=== PATIENT | female | born 1970 | race Caucasian/White ===

== ENCOUNTER 2020-05-13 12:59 | Observation (INO) | payer MEDICAID ==
[~2020-05-13] VITALS: Ht 157.5 cm; Wt 101.6 kg
[2020-05-13 13:06] VITALS: BP 146/108
--- NOTE | 2020-05-13 13:10 | NUR ---
49 y/o female referred from urgent care for possible I & D to abscess on upper back. Pt states she has had abscess for 1 year but has progressively gotten worse. 7/10 pain. Redness noted around abscess. Warm and tender to the touch. Skin warm, dry, and intact. Awake and alert. Positioned for comfort, HOB elevated, x 1 side rail raised, bed locked and in lowest position. medhx: diverticulitis
--- NOTE | 2020-05-13 13:15 | NUR ---
Dr Mclaughlin at bedside examining pt
[2020-05-13] MEDS ORDERED: LIDOCAINE/EPI 1% 1:100000 20 ML VIAL INJ ONE (13:20)
[2020-05-13] MEDS ORDERED: NACL 0.9% 1,000 ML IV ONE (13:50)
[2020-05-13] MEDS ORDERED: KETOROLAC 30 MG/ML VIAL IVP ONE (13:50)
--- NOTE | 2020-05-13 14:18 | NUR ---
20G IV placed to right ac, blood drawn at this time and given to lab.
[2020-05-13 14:33] LABS: BASOPHILS # (AUTO) 0.1 K/uL (0.00-0.22); BASOPHILS % (AUTO) 0.5 % (0.0-2.0); EOSINOPHILS # (AUTO) 0.1 K/uL (0-0.4); HEMATOCRIT 39.3 % (36-48); HEMOGLOBIN 12.9 g/dL (12.0-16.0); LYMPHOCYTES # (AUTO) 1.1 K/uL (2.5-16.5); LYMPHOCYTES % (AUTO) 11.6 % (20.5-51.1); MEAN CORPUSCULAR HEMOGLOBIN 27 pg (27-31); MEAN CORPUSCULAR HGB CONC 33 g/dL (33-37); MEAN CORPUSCULAR VOLUME 83.3 fL (80-94); MONOCYTES # (AUTO) 0.5 K/uL (0.8-1.0); MONOCYTES % (AUTO) 5.5 % (1.7-9.3); NEUTROPHILS # (AUTO) 7.9 K/uL (1.8-7.7); NEUTROPHILS % (AUTO) 81.4 % (42.2-75.2); PLATELET COUNT (AUTO) 356 K/uL (140-450); RED BLOOD CELL COUNT(AUTO) 4.72 MIL/uL (4.20-5.40); RED CELL DISTRIBUTION WIDTH 15.8 % (11.6-13.7); WHITE BLOOD COUNT (AUTO) 9.7 K/uL (4.8-10.8)
[2020-05-13 14:38] LABS: ANION GAP 16.2 (8-16); CARBON DIOXIDE 23.6 mmol/L (21-32); CREATININE 0.8 mg/dL (0.6-1.3); POTASSIUM 3.8 mmol/L (3.5-5.1)
[2020-05-13] MEDS ORDERED: VANCOMYCIN 1,000 MG in DEXTROSE 5% 250 ML IV ONE (15:10)
[2020-05-13] MEDS ORDERED: MORPHINE SULFATE 4 MG/ML SYR IVP ONE (15:10)
[2020-05-13] MEDS ORDERED: ONDANSETRON 4 MG/2 ML VIAL IVP ONE (15:10)
[2020-05-13] MEDS ORDERED: VANCOMYCIN 1,000 MG VIAL ONE (15:14)
[2020-05-13] MEDS: NACL 0.45% 1,000 ML IV SCH (15:24)
[2020-05-13] MEDS ORDERED: ACETAMINOPHEN 325 MG TAB PO PRN (15:25)
[2020-05-13] MEDS ORDERED: HYDROcodone/APAP 5/325 MG 1 TAB TAB PO PRN (15:25)
--- NOTE | 2020-05-13 15:48 | NUR ---
Pt awake and alert, rr even and unlabored. All needs met at this time. Will continue to monitor
[2020-05-13 16:30] VITALS: BP 147/57
--- NOTE | 2020-05-13 16:30 | NUR ---
PT CAME TO UNIT ON A WHEEL CHAIR. PT IS AWAKE RESPONSIVE COOPERATIVE. NOTED WITH ABSCESS 7X7. PAINFUL TO TOUCH. ABSCESS INTACT. NOTED WITH A COLOSTOMY BAG. PT IS AMBULATORY. ID BAND IN PLACE. NO DISTRESS NOTED. COMPLAINS OF PAIN TO ABSCESS. VITAL SIGNS NORMAL O2 SATS AT 95%. BED IN LOW POSITION. CALL LIGHT IN REACH. WILL CONTINUE TO MONITOR.
--- NOTE | 2020-05-13 16:32 | NUR ---
Patient will be admitted to care of Dr Maldonado. Admited to med surg. Will go to room 104B. Belongings list completed. Report to WILLIS Dueñas.
[2020-05-13] MEDS: AMPICILLIN/SULBACTAM 3 GM in NACL 0.9% 100 ML IV SCH (17:03)
--- NOTE | 2020-05-13 18:14 | NUR ---
PT AMBULATED TO RESTROOM . PT CAME BACK TO BED AND EATING DINNER. NO DISTRESS NOTED. PT IS RESPONSIVE AND COOPERATIVE. WILL CONTINUE TO MONITOR. CALL LIGHT IN REACH.
--- NOTE | 2020-05-13 19:19 | NUR ---
SHIFT R EPORT GIVEN TO DATA INTEGRATION ANALYST NURSE. PT IS STABLE.
--- NOTE | 2020-05-13 19:20 | NUR ---
RECD. RESTING IN BED, AWAKE, A/OX4. AMBULATORY TO THE BAR. IV OF 1/2 NS AT 50 ML/HR INFUSING, RIGHT AC G20. ABSCESS AT THE BACK APPEARS LIKE A LUMP, TENDER TO TOUCH. ON IV ANTIBIOTICS. PLAN OF CARE FOR THE SHIFT DISCUSSED. VERBALIZED UNDERSTANDING. DENIES PAIN 0/10.
--- NOTE | 2020-05-13 22:00 | NUR ---
PLAN OF CARE DISCUSSED WITH SABRINA MANRIQUEZ LVN.
[2020-05-14] VITALS: BP 108/42
--- NOTE | 2020-05-14 | NUR ---
SLEEPING COMFORTABLY IN BED.
[2020-05-14] MEDS ORDERED: ONDANSETRON 4 MG/2 ML VIAL IVP PRN (00:15)
[2020-05-14] MEDS: AMPICILLIN/SULBACTAM 3 GM in NACL 0.9% 100 ML IV SCH ×3 (00:49→12:00)
[2020-05-14] MEDS: HYDROcodone/APAP 10/325 MG 1 TAB TAB PO PRN ×4 (01:58→17:50)
[2020-05-14 06:26] LABS: BASOPHILS % (AUTO) 0.6 % (0.0-2.0); EOSINOPHILS # (AUTO) 0.2 K/uL (0-0.4); EOSINOPHILS % (AUTO) 2.8 % (0.0-4.0); HEMATOCRIT 36.6 % (36-48); LYMPHOCYTES # (AUTO) 1.5 K/uL (2.5-16.5); LYMPHOCYTES % (AUTO) 18.7 % (20.5-51.1); MEAN CORPUSCULAR HEMOGLOBIN 28 pg (27-31); MEAN CORPUSCULAR HGB CONC 33 g/dL (33-37); MEAN CORPUSCULAR VOLUME 84.4 fL (80-94); MONOCYTES # (AUTO) 0.7 K/uL (0.8-1.0); MONOCYTES % (AUTO) 8.5 % (1.7-9.3); NEUTROPHILS # (AUTO) 5.5 K/uL (1.8-7.7); NEUTROPHILS % (AUTO) 69.4 % (42.2-75.2); PLATELET COUNT (AUTO) 300 K/uL (140-450); RED BLOOD CELL COUNT(AUTO) 4.34 MIL/uL (4.20-5.40); RED CELL DISTRIBUTION WIDTH 16.3 % (11.6-13.7)
--- NOTE | 2020-05-14 07:00 | NUR ---
COMPLAINT OF BACK PAIN ATTENDED PROMPTLY. MEDICATED ORDERED. CONDITION REMAIN STABLE. WILL ENDORSE TO AM SHIFT NURSE FOR CONTINUITY OF CARE.
--- NOTE | 2020-05-14 07:30 | NUR ---
RECEIVED REPORT FROM [facility] NURSE, ASSUMED CARE. PT RESTING COMFORTABLY WITH NO S/S OF PAIN AND/OR DISTRESS AT THIS TIME. PERSONAL BELONGINGS, BEDSIDE TABLE, CALL LIGHT WITHIN REACH. WILL CONTINUE TO MONITOR.
[2020-05-14 08:00] VITALS: BP 136/72
[2020-05-14 08:17] LABS: ALBUMIN 3.1 g/dL (3.4-5.0); CARBON DIOXIDE 26.2 mmol/L (21-32); CREATININE 0.7 mg/dL (0.6-1.3); POTASSIUM 4.2 mmol/L (3.5-5.1); TOTAL BILIRUBIN 1.7 mg/dL (0.0-1.0)
--- NOTE | 2020-05-14 09:14 | NUR ---
PATIENT HAS BEEN SCREENED AND CATEGORIZED LOW NUTRITION RISK. PATIENT WILL BE SEEN WITHIN 7 DAYS OF ADMISSION. 05/20/[address]
[2020-05-14] MEDS: NACL 0.45% 1,000 ML IV SCH (11:24)
--- NOTE | 2020-05-14 12:36 | NUR ---
DISCHARGE PLANNING: THIS IS A 49 Y/O FEMALE PATIENT FROM HOME, WHO CAME IN DUE TO LEFT UPPER BACK PAIN/SWELLING AND ERYTHEMA. PAST MEDICAL HISTORY INCLUDE COLOSTOMY 2/2 TO DIVERTICULITIS. INITIAL DIAGNOSIS OF ABSCESS. ON UNASYN. SURGICAL CONSULT IN PLACE. DC PLAN BACK TO HOME AFTER I AND D PER DR. STONE.
[2020-05-14] MEDS ORDERED: BUPIVACAINE-MPF 0.25% 30 ML VIAL INJ ONE ×2 (13:38→13:39)
[2020-05-14] MEDS ORDERED: LIDOCAINE/EPI 1% 1:100000 20 ML VIAL INJ ONE (13:39)
[2020-05-14] MEDS ORDERED: PROPOFOL 200 MG/20 ML VIAL IV ONE (13:49)
[2020-05-14] MEDS ORDERED: fentaNYL citrate 0.05 MG/ML VIAL ONE (13:49)
[2020-05-14] MEDS ORDERED: ONDANSETRON 4 MG TAB ONE (13:49)
[2020-05-14] MEDS ORDERED: HYDROmorphone 1 MG/ML AMP IVP PRN (15:15)
[2020-05-14] MEDS: HYDROmorphone 1 MG/ML AMP IVP PRN ×2 (15:15→15:30)
[2020-05-14] MEDS ORDERED: HYDROcodone/APAP 5/325 MG 1 TAB TAB PO PRN (15:15)
[2020-05-14] MEDS ORDERED: HYDROmorphone PFS 2 MG/ML SYR ONE (15:16)
[2020-05-14 18:39] VITALS: BP 140/70
[2020-05-14] MEDS ORDERED: HYDR-5122 PO (19:00)
[2020-05-14] MEDS ORDERED: SULF-58 PO (19:01)
--- NOTE | 2020-05-14 20:12 | NUR ---
PT DISCHARGED VIA W/C, PICKED UP BY BROTHER. ALL BELONGINGS WITH PATIENT. PRESCRIPTION GIVEN TO PATIENT AND WITNESSED BY CRN.
--- NOTE | 2020-05-28 12:04 | NUR ---
i talked to Monica , she said she hang ampicillin for 30 minutes. Addendum: 05/28/20 at 1221 by Janet Rivas RN wrong patient
== END 2020-05-14 20:05 | disposition home or self-care (01) ==
LOC: MED 12:59 → MTU 15:28
PROVIDERS: ADMIT Internal Medicine; ATTEND Internal Medicine
DX: L02.212 Cutaneous abscess of back [any part, except buttock and flank] (principal); I10 Essential (primary) hypertension; Z90.49 Acquired absence of other specified parts of digestive tract; Z93.3 Colostomy status; Z90.89 Acquired absence of other organs; Z79.899 Other long term (current) drug therapy
CPT/HCPCS: 10060; 36415; 80048; 80053; 83605; 85025; 85610; 85730; 86886; 86900; 86901; 87040; 87070; 87075; 87081; 87205; 88304; 96361; 96365; 96366; 96367; 96375; 96376; 99285; G0378; J0295; J1170; J1885; J2001; J2270; J2405; J2704; J3010; J3370; J3490; J7030; Q0162